=== PATIENT | male | born 1955 | race Two or more races ===

== ENCOUNTER 2025-04-21 19:09 | Inpatient (IN) | payer OTHER, MEDICAID ==
[~2025-04-21] VITALS: Ht 160 cm; Wt 67.1 kg
[2025-04-21 20:23] LABS: PLATELET COUNT (AUTO) 226 K/uL (150-450); RED BLOOD CELL COUNT(AUTO) 4.00 MIL/uL (4.5-6.0); RED CELL DISTRIBUTION WIDTH 14.3 % (11.5-15.0); WHITE BLOOD COUNT (AUTO) 12.3 K/uL (4.3-11.0)
[2025-04-21 20:46] LABS: ASPARTATE AMINOTRANSFERASE 25.0 U/L (15-37); CALCIUM, SERUM 8.5 mg/dL (8.5-10.1); CREATININE 1.2 mg/dL (0.6-1.3); TOTAL PROTEIN, SERUM 7.4 g/dL (6.4-8.2); UREA NITROGEN, BLOOD 29.0 mg/dL (7-18)
[2025-04-21 20:47] LABS: SODIUM SERUM 122.0 mmol/L (136-145)
[2025-04-21 21:02] LABS: APPEARANCE,URINE CLEAR (CLEAR); BLOOD, URINE TRACE-INTA Ery/uL (NEGATIVE); LEUKOCYTE ESTERASE ,URINE NEGATIVE (NEGATIVE); NITRITE, URINE NEGATIVE (NEGATIVE); UGLUCOSE 2+ mg/dL (NEGATIVE)
[2025-04-21 21:54] LABS: ADD URINE CULTURE NO; SQUAMOUS EPITHELIAL CELL,UR Few /HPF (None Seen)
[2025-04-21 22:00] VITALS: O2SAT 98
[2025-04-21] MEDS ORDERED: DEXTROSE 50%-WATER 50 ML DISP.SYRIN IV PRN (22:30)
[2025-04-21] MEDS ORDERED: ONDANSETRON HCL/PF 4 MG/2 ML VIAL IVP PRN (22:30)
[2025-04-21] MEDS ORDERED: ACETAMINOPHEN 325 MG TABLET PO PRN (22:30)
[2025-04-21] MEDS ORDERED: MAG HYDROX/AL HYDROX/SIMETH 30 ML UDC PO PRN (22:30)
[2025-04-21] MEDS ORDERED: Z GUARD REMEDY 4 OZ OINT TP PRN (22:30)
[2025-04-22] MEDS: IV NS 0.9% 1,000 ML IV PRN (00:19)
[2025-04-22 04:36] VITALS: BP 139/66; TEMP 97.7; O2SAT 100
[2025-04-22] MEDS: BLOOD SUGAR DIAGNOSTIC 1 EACH STRIP IN SCH (06:42)
[2025-04-22] MEDS: INSULIN REGULAR, HUMAN 100 UNIT/ML 3 ML VIAL SQ PRN (06:43)
[2025-04-22 07:30] VITALS: BP 137/69; TEMP 97.9; O2SAT 100
[2025-04-22] MEDS: PANTOPRAZOLE 40 MG TABLET.DR PO SCH (09:04)
[2025-04-22] MEDS: ENOXAPARIN SODIUM 40 MG/0.4 ML DISP.SYRIN SQ SCH (09:05)
[2025-04-22] MEDS: IV NS 0.9% 1,000 ML IV SCH (09:08)
[2025-04-22 10:55] LABS: PLATELET COUNT (AUTO) 233 K/uL (150-450); RED BLOOD CELL COUNT(AUTO) 3.89 MIL/uL (4.5-6.0); RED CELL DISTRIBUTION WIDTH 14.9 % (11.5-15.0); WHITE BLOOD COUNT (AUTO) 8.2 K/uL (4.3-11.0)
[2025-04-22] MEDS ORDERED: GLIM4TAB37 PO (10:56)
[2025-04-22] MEDS ORDERED: LISI40TA13 PO (10:56)
[2025-04-22] MEDS ORDERED: CARV6.252 PO (10:56)
[2025-04-22] MEDS ORDERED: HYDR25TA4 PO (10:56)
[2025-04-22] MEDS ORDERED: INSU100I26 SQ (10:56)
[2025-04-22] MEDS ORDERED: ATOR80TA PO (10:56)
[2025-04-22] MEDS ORDERED: ASPI-1169 PO (10:56)
[2025-04-22] MEDS ORDERED: EMPA25TA PO (10:56)
[2025-04-22 11:03] LABS: CALCIUM, SERUM 8.6 mg/dL (8.5-10.1); CREATININE 1.5 mg/dL (0.6-1.3); PHOSPHORUS 4.6 mg/dL (2.5-4.9); SODIUM SERUM 126.0 mmol/L (136-145); UREA NITROGEN, BLOOD 30.0 mg/dL (7-18)
[2025-04-22 16:00] VITALS: BP 119/62; TEMP 98.1; O2SAT 99
[2025-04-22 20:00] VITALS: BP 128/65; TEMP 98.2; O2SAT 100
[2025-04-23 04:00] VITALS: BP 129/67; TEMP 98.4; O2SAT 100
[2025-04-23 04:52] VITALS: BP 129/67; TEMP 98.4
[2025-04-23] MEDS: MAGNESIUM HYDROXIDE 30 ML UDC PO PRN (06:09)
[2025-04-23 07:25] LABS: PLATELET COUNT (AUTO) 236 K/uL (150-450); RED BLOOD CELL COUNT(AUTO) 4.24 MIL/uL (4.5-6.0); RED CELL DISTRIBUTION WIDTH 14.7 % (11.5-15.0); WHITE BLOOD COUNT (AUTO) 8.4 K/uL (4.3-11.0)
[2025-04-23 07:30] VITALS: BP 135/84; TEMP 98.1; O2SAT 94
[2025-04-23 07:53] LABS: CALCIUM, SERUM 8.9 mg/dL (8.5-10.1); CREATININE 1.2 mg/dL (0.6-1.3); SODIUM SERUM 131.0 mmol/L (136-145); UREA NITROGEN, BLOOD 26.0 mg/dL (7-18)
[2025-04-23] MEDS ORDERED: IV NS 0.9% 1,000 ML IV PRN (08:04)
[2025-04-23] MEDS ORDERED: NA PHOS,M-B/NA PHOS,DI-BA 1 EA ENEMA RC SCH (11:30)
== END 2025-04-23 13:05 | disposition home or self-care (01) | DRG 918 ==
LOC: ER 19:11 → TELE 22:25
PROVIDERS: ADMIT Registered Nurse Psychiatric/Mental Health; ATTEND Internal Medicine
DX: T38.3X1A Poisoning by insulin and oral hypoglycemic [antidiabetic] drugs, accidental (unintentional), initial encounter (principal); E87.1 Hypo-osmolality and hyponatremia; E11.649 Type 2 diabetes mellitus with hypoglycemia without coma; E86.0 Dehydration; I10 Essential (primary) hypertension; E78.5 Hyperlipidemia, unspecified; I25.2 Old myocardial infarction; M89.8X9 Other specified disorders of bone, unspecified site; I25.10 Atherosclerotic heart disease of native coronary artery without angina pectoris; Z86.74 Personal history of sudden cardiac arrest; Z79.02 Long term (current) use of antithrombotics/antiplatelets; Z79.4 Long term (current) use of insulin; Z79.84 Long term (current) use of oral hypoglycemic drugs; Z85.46 Personal history of malignant neoplasm of prostate; Y92.89 Other specified places as the place of occurrence of the external cause; D64.9 Anemia, unspecified; D72.829 Elevated white blood cell count, unspecified; Z91.148 Patient's other noncompliance with medication regimen for other reason; E86.1 Hypovolemia; Z92.3 Personal history of irradiation; Z95.5 Presence of coronary angioplasty implant and graft; T50.2X5A Adverse effect of carbonic-anhydrase inhibitors, benzothiadiazides and other diuretics, initial encounter; E86.9 Volume depletion, unspecified; Z79.82 Long term (current) use of aspirin; Z79.899 Other long term (current) drug therapy
CPT/HCPCS: 36415; 71045-TC; 80048-TC; 80053-TC; 81001; 82962-TC; 83735-TC; 83935-TC; 84100-TC; 84300-TC; 84484-TC; 85025-TC; A4223; G0378; J1650; J1815; J7030